=== PATIENT | male | born 1970 | race Hispanic/Latino ===

== ENCOUNTER 2018-05-07 21:14 | Emergency (ER) | payer OTHER ==
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
--- NOTE | 2018-05-07 22:25 | XRay Report ---
PROCEDURE: XR KNEE 1-2V RT TECHNIQUE: AP and lateral views of the right knee HISTORY: injury, knee pain on the right COMPARISONS: None . FINDINGS: No acute fracture or dislocation is seen. The soft tissues are unremarkable with no evidence for supr apatellar joint effusion. Joint spaces are maintained and bony mineralization is normal. IMPRESSION: Negative views of the right knee. This document is electronically signed by Cathy Srivastava MD., May 07 2018 10:23:11 PM ET
--- NOTE | 2018-05-08 00:08 | Cat Scan Report ---
PROCEDURE: CT HEAD/BRAIN WO CON TECHNIQUE: Non-contrast CT brain. MPR. Overall image quality is limited secondary to patient [id number]. Total Exam DLP 920.48 mGy-cm HISTORY: Injury. COMPARISONS: None. FINDINGS: BONE - Calvarium: Intact. Central skull base: Intact. Temporal mastoids: No effusion. Included paranasal sinuses: Well aerated. CSF SPACES - Ventricles: Normal. Subarachnoid spaces: Normal. BRAIN - No acute intracranial bleed, large vessel territory infarct or mass. Mild evaluation of the anterior skull base and inner table/peripheral brain parenchyma secondary to p atient motion. IMPRESSION: 1. No acute intracranial hemorrhage or displaced skull fracture. 2. Examination is moderately limited secondary to patient motion as detailed above. If clinical conc timur consider repeat CT or MRI after sedation. RECOMMENDATION: None. IMPRESSION: . This document is electronically signed by Duke Salamanca DO., May 08 2018 12:06:09 AM ET
--- NOTE | 2018-05-08 00:14 | Cat Scan Report ---
PROCEDURE: CT CERVICAL SPINE WO CON TECHNIQUE: Noncontrast CT cervical spine. MPR. Overall image quality is satisfactory. DOSE: 726.66 mGy-cm HISTORY: Injury. COMPARISONS: None. FINDINGS: Seven (7) cervical type non-rib bearing vertebral bodies. Patients head is rotated to the right and there is a mild convex left curvature which results in subo ptimal imaging planes. No cervical spine fracture identified. Mild, multilevel degenerative changes. Usual mineralization, without lytic or blastic foci. Prevertebral soft tissue unremarkable. IMPRESSION: No acute cervical spine fracture. This document is electronically signed by Duke Salamanca DO., May 08 2018 12:12:44 AM ET
[2018-05-08] MEDS ORDERED: TORADOL IM ONE (00:23)
--- NOTE | 2018-05-08 01:09 | Cat Scan Report ---
PROCEDURE: CT THORACIC SPINE WO CON, CT LUMBAR SPINE WO CON TECHNIQUE: 1. Axial images were obtained of the thoracic spine. 2. Axial images were obtained of the lumbar spine were reformatted in the coronal and sagittal planes . Sagittal plane covering extends from T10 through the superior sacrum, the T1-T9 vertebral bodies ar e not within the field of view on the multiplanar reformatted images. HISTORY: Injury. COMPARISONS: Unavailable. FINDINGS: Thoracic spine: Multilevel degenerative changes without identified thoracic spine fracture or adjacent hematoma. No d ense collection is noted within the spinal canal. No displaced posterior rib fracture. Evaluated port ions of lungs are clear without consolidation, pleural effusion or pneumothorax. No pericardial effus ion. Lumbar spine: There is loss of usual lumbar lordosis and mild anterolisthesis of L4 relative to L5. Bilateral spond ylolysis at L4 is present. Mild retrolisthesis of L5 relative to S1. Vertebral body heights are overall maintained of the multilevel Schmorl's nodes and endplate degenera tive changes. Additional moderate disc space loss and vacuum phenomenon at L4-L5 and L5-S1 with endpl ate sclerosis. Moderate facet arthropathy from L3-L4 through L5-S1 is present. Suggested moderate to severe narrowing of the neural foramina at L4-L5 and L5-S1. Paraspinal tissues: Parapelvic cyst versus prominence of the left renal pelvis. The distal ureter is decompressed and there are no renal calculi. No retroperitoneal adenopathy is identified. IMPRESSION: 1. No acute thoracic or lumbar spine fracture identified. 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 2. Abnormal anterolisthesis of L4 and retrolisthesis of L5. 3. Prominent endplate and facet degenerative changes at the L4-L5 level which contribute to suggested moderate to severe bilateral neural foraminal narrowing. MRI can further quantify and evaluate for l igamentous injury if clinical suspicion. 4. Probable incidental left parapelvic cyst or prominence of the renal pelvis. No obstructive uropath y. This document is electronically signed by Duke Salamanca DO., May 08 2018 01:06:37 AM ET
[2018-05-08 01:52] VITALS: BP 168/92
== END 2018-05-08 01:53 | disposition home or self-care (01) ==
LOC: ED 21:14
DX: S16.1XXA Strain of muscle, fascia and tendon at neck level, initial encounter (principal); S39.012A Strain of muscle, fascia and tendon of lower back, initial encounter; S83.91XA Sprain of unspecified site of right knee, initial encounter; S29.011A Strain of muscle and tendon of front wall of thorax, initial encounter; S09.90XA Unspecified injury of head, initial encounter; X58.XXXA Exposure to other specified factors, initial encounter; Y93.89 Activity, other specified; Y99.8 Other external cause status; Y92.89 Other specified places as the place of occurrence of the external cause
CPT/HCPCS: 70450; 72125; 72128; 72131; 73560; 99284; J1885